=== PATIENT | female | born 1975 ===

== ENCOUNTER 2021-02-10 06:00 | Day surgery (SDC) | payer OTHER ==
[~2021-02-10 06:00] MED LIST: HYOSCYAMINE PO; LEVSIN/SL0.125 MG SL
[2021-02-10] MEDS ORDERED: POLY119PG PO (09:48)
[2021-02-10] MEDS ORDERED: ULTRACET PO (09:48)
[2021-02-10] MEDS ORDERED: SURFAK240 M1 PO (09:48)
[2021-02-10] MEDS ORDERED: CIPRO500 MG PO (09:49)
== END 2021-02-10 13:55 | disposition home or self-care (01) ==
LOC: CIR.AMB 06:00
PROVIDERS: ATTEND Surgery
DX: K42.9 Umbilical hernia without obstruction or gangrene (principal); K80.10 Calculus of gallbladder with chronic cholecystitis without obstruction; K43.9 Ventral hernia without obstruction or gangrene; Z20.822 Contact with and (suspected) exposure to COVID-19